=== PATIENT | male | born 1945 | race Caucasian/White ===

== ENCOUNTER 2018-12-13 19:23 | Inpatient (IN) | payer OTHER ==
[~2018-12-13] VITALS: Ht 185.4 cm; Wt 96.5 kg
[2018-12-13 19:25] VITALS: BP 129/98
[2018-12-13 19:41] LABS: HEMATOCRIT 41.8 % (42.0-52.0); HEMOGLOBIN 14.6 gm/dL (14.0-18.0); MCV 88.5 fL (80.0-100.0); PLATELET COUNT 173 thou/uL (150-400); RBC 4.72 mil/uL (4.50-6.00); RDW 14.1 % (10.5-14.5); WBC 7.2 thou/uL (4.0-11.0)
[2018-12-13 19:49] LABS: CALCIUM 8.5 mg/dL (8.5-10.1); CREATININE 1.5 mg/dL (0.7-1.3); POTASSIUM 3.2 mmol/L (3.5-5.1)
[2018-12-13 19:58] LABS: MAGNESIUM 1.5 mg/dL (1.8-2.4); TROPONIN-I 0.16 ng/mL (<0.06)
[2018-12-13 20:01] LABS: ANISOCYTOSIS 1+
[2018-12-13] MEDS ORDERED: LISINOPRIL20 MG PO (22:28)
[2018-12-13 22:29] VITALS: BP 127/81
[2018-12-13 22:37] VITALS: BP 127/81
[2018-12-14 05:02] LABS: CALCIUM 8.4 mg/dL (8.5-10.1); CREATININE 1.3 mg/dL (0.7-1.3); MAGNESIUM 1.6 mg/dL (1.8-2.4); POTASSIUM 3.6 mmol/L (3.5-5.1); TROPONIN-I 0.14 ng/mL (<0.06)
[2018-12-14 07:15] VITALS: BP 142/88
[2018-12-14 09:21] VITALS: BP 144/72
--- NOTE | 2018-12-14 09:24 | 2DMMODE ---
[facility] [place] [address] 2 D/M-MODE ECHOCARDIOGRAM Name: LBANCHE BIGGS Room #: 170-10 ADM IN M.R.#: [id number] ������������� Admission: 12/13/18 ������������� Attend Phys: Duncan Gongora Discharge: ��� ������������� ��� Date of : 49 Date of Service: 12/14/18 0923 �� Report #: [id number] �������� ��������������������������������������������[id number] THIS REPORT FOR: //name// APPROVED REPORT Study performed: 12/14/2018 08:11:13 EXAM: Comprehensive 2D, Doppler, and color-flow Echocardiogram Patient Location: ER Room #: 10 Status: routine BSA: 2.24 HR: 101 bpm BP: 140/80 mmHg Rhythm: Atrial Fibrillation Other Information Study Quality: Adequate Indications Atrial Fibrillation Hypertension/HDD 2D Dimensions RVDd: 33.54 mm IVSd: 12.86 (7-11mm) LVOT Diam: 21.50 (18-24mm) LVDd: 49.68 mm PWd: 11.87 (7-11mm) Ascending Ao: 29.61 (22-36mm) LVDs: 33.69 (25-40mm) Aortic Root: 32.29 mm IVC: 18.00 mm Volumes Left Atrial Volume (Systole) Single Plane 4CH: 59.23 mL Single Plane 2CH: 55.38 mL LA ESV Index: 28.00 mL/m2 Aortic Valve AoV Peak Rush.: 1.24 m/s AO Peak Gr.: 6.18 mmHg LVOT Max P.18 mmHg LVOT Max V: 0.89 m/s JAIRO Vmax: 2.60 cm2 Pulmonary Valve PV Peak Rush.: 1.08 m/s PV Peak Gr.: 4.69 mmHg [facility] [address] [place] [address] 2 D/M-MODE ECHOCARDIOGRAM Name: BLANCHE BIGGS Room #: 170-10 ADM IN ..#: [id number] ������������� Admission: 12/13/18 ������������� Attend Phys: Duncan Gongora Discharge: ��� ������������� ��� Date of : 49 Date of Service: 12/14/18 0923 �� Report #: [id number] �������� ��������������������������������������������[id number] Tricuspid Valve TR Peak Rush.: 2.54 m/s TR Peak Gr.: 25.78 mmHg PA Pressure: 31.00 mmHg Left Ventricle The left ventricle is normal size. There is normal LV segmental wall motion. Mild concentric left ventricular hypertrophy. The left ventricular systolic function is normal. The left ventricular ejection fraction is within the normal range. LVEF is 60-65%. This study is not technically sufficient to allow evaluation of the LV diastolic function due to atrial fibrillation. Right Ventricle The right ventricle is normal size. The right ventricular systolic function is normal. Atria The left atrium size is normal. The right atrium size is normal. Aortic Valve The aortic valve is normal in structure. No aortic regurgitation is present. There is no aortic valvular stenosis. Mitral Valve The mitral valve is normal in structure. Mild mitral regurgitation. No evidence of mitral valve stenosis. Tricuspid Valve The tricuspid valve is normal in structure. There is trace tricuspid regurgitation. Estimated PAP 30 mmHg. There is mild pulmonary hypertension. Pulmonic Valve The pulmonary valve is normal in structure. There is no pulmonic valvular regurgitation. Great Vessels The aortic root is normal in size. IVC is normal in size and collapses >50% with inspiration. Pericardium There is no pericardial effusion. <Conclusion> [facility] [address] [place] [address] 2 D/M-MODE ECHOCARDIOGRAM Name: BLANCHE BIGGS Room #: 170-10 [facility] IN M.R.#: [id number] ������������� Admission: 12/13/18 ������������� Attend Phys: Duncan Gongora Discharge: ��� ������������� ��� Date of : 49 Date of Service: 12/14/18922 �� Report #: [id number] �������� ��������������������������������������������[id number] The left ventricular systolic function is normal. There is normal LV segmental wall motion. LVEF is 60-65%. The aortic valve is normal in structure. No aortic regurgitation or stenosis The mitral valve is normal in structure. Mild mitral regurgitation. There is trace tricuspid regurgitation. Estimated pulmonary artery pressure of 30 mmHg. There is no pericardial effusion. ��������������������������������������������� <ELECTRONICALLY SIGNED> ���������������������������������������� By: Evans Steele MD, [facility] ��������������������������������������������� 12/14/18922 2 2 Evans Steele MD, FACC /INF
[2018-12-14 11:15] VITALS: BP 166/63
[2018-12-14] MEDS ORDERED: CARDIZEM CD240 MG PO (13:12)
[2018-12-14] MEDS ORDERED: XARELTO20 MG PO (13:13)
[2018-12-14 13:28] VITALS: BP 141/80
[2018-12-14 13:45] VITALS: BP 114/73
--- NOTE | 2018-12-14 13:48 | NUR ---
REPORT TAKEN FROM DUSTIN RN/ER. PT ARRIVED TO 2N ROOM 210. VSS. AFIB ON THE MONITOR RATES FROM 70-114. DILT GTT RUNNING AT 5MG/HR. NO PAIN/NO CHEST PAIN. PT RESTING IN BED WITH CALL LIGHT IN REACH. WILL CONTINUE TO MONITOR.
--- NOTE | 2018-12-14 17:56 | EKG ---
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: ABHAY : 1945 Requested By: Reggie Borja Order Number: [id number] MD: Evans Steele Measurements Intervals [place] Rate: 170 P: [place]: QRS: 0 QRSD: 83 T: 42 QT: 291 QTc: 490 Interpretive Statements Atrial fibrillation with rapid V-rate ST depression, probably rate related Baseline wander in lead(s) V6 Compared to ECG 03/18/1994 19:28:00 Atrial fibrillation has replaced sinus bradycardia Electronically Signed On 12-14-2018 17:55:46 CDT by Evans Steele [email or web address] ��������������������������������������������� <ELECTRONICALLY SIGNED> ���������������������������������������� By: Evans Steele MD, FAC ��������������������������������������������� 12/14/18 1755 30 30 Evans Steele MD, [facility] /EPI
--- NOTE | 2018-12-14 17:56 | EKG ---
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: shayy : 1945 Requested By: Reggie Borja Order Number: [id number] MD: Evans Steele Measurements Intervals [place] Rate: 85 P: [place]: QRS: 1 QRSD: 89 T: 10 QT: 355 QTc: 422 Interpretive Statements Atrial fibrillation Paired ventricular premature complexes Abnormal R-wave progression, early transition Borderline repolarization abnormality Compared to ECG 03/18/1994 19:28:00 Ventricular response has slowed ST and T wave abnormality is less pronounced Electronically Signed On 12-14-2018 17:56:36 CDT by Evans Steele [email or web address] ��������������������������������������������� <ELECTRONICALLY SIGNED> ���������������������������������������� By: Evans Steele MD, [facility] ��������������������������������������������� 12/14/18 1756 41 41 Evans Steele MD, [facility] /EPI
[2018-12-14 20:15] VITALS: BP 97/72
[2018-12-15 05:15] VITALS: BP 114/78
--- NOTE | 2018-12-15 07:37 | NUR ---
ASSESSMENTS CHARTED. PATIENT RESTED THROUGH OUT THE SHIFT. DENIED PAIN OR CHEST PRESSURE. PLAN OF CARE IS TO GO HOME TODAY WITH A CARDIAC EVENT RECORDER.
--- NOTE | 2018-12-15 08:50 | EKG ---
[address] [place] [address] ELECTROCARDIOGRAM REPORT Name: BLANCHE BIGGS Room #: 210-P ADM IN M.R.#: [id number] ������������������ Admission: 12/13/18 ������������������ Attend Phys: Duncan Hidalgo Discharge: ������������������ Date of : 49 Report #: [id number] ����������������������������������������������������������������� [id number] THIS REPORT FOR: //name// [facility] Test Date: 2018-12-15 Test Time: 06:44:51 Pat Name: BLANCHE BIGGS Department: Room: 210 P Gender: M Medical Csr: MIRANDA : 1945 Requested By: Evans Steele Order Number: [id number] MD: Vinh Juárez Measurements Intervals [place] Rate: 95 P: [place]: QRS: -14 QRSD: 96 T: 2 QT: 372 QTc: 468 Interpretive Statements Atrial fibrillation RSR' in V1 or V2, right VCD Borderline T abnormalities, inferior leads Compared to ECG 12/13/2018 20:42:10 RSR' in V1 or V2 now present T-wave abnormality now present Electronically Signed On 12-15-2018 8:49:57 CDT by Vinh Juárez [email or web address] ��������������������������������������������� <ELECTRONICALLY SIGNED> ���������������������������������������� By: Vinh Juárez MD ��������������������������������������������� 12/15/18 0849 0644 0644 Vinh Juárez MD /[facility]
[2018-12-15 09:00] VITALS: BP 104/78
[2018-12-15] MEDS ORDERED: ATENOLOL 50MG T50 M1 PO (09:31)
[2018-12-15 10:12] VITALS: BP 104/78
--- NOTE | 2018-12-15 10:22 | NUR ---
ASSESSMENT DOCUMENTED. VSS. AFIB ON THE MONITOR RATES CONTROLLED. DISCHARGE EDUCATION/PRESCRIPTIONS GIVEN. IV AND HEART MONITOR DC'D. NO PAIN. PT BEING SENT TO [address] FOR 2 WEEK EVENT RECORDER AT DISCHARGE. PT RESTING IN CHAIR WITH CALL LIGHT IN REACH. WILL CONTINUE TO MONITOR.
== END 2018-12-15 10:55 | disposition home or self-care (01) | DRG 309 ==
LOC: ER 19:23 → 2N 20:10 → EROBS 20:10 → 2N 12-14 13:29 → ENTRNSPT 12-15 10:42 → EDTRNSPTSTS 12-15 10:47 → 2N 12-15 10:55
PROVIDERS: Emergency Medicine; Nurse Practitioner Acute Care; ADMIT Hospitalist
DX: I48.91 Unspecified atrial fibrillation (principal); N17.9 Acute kidney failure, unspecified; E87.6 Hypokalemia; N18.3 Chronic kidney disease, stage 3 (moderate); Z87.891 Personal history of nicotine dependence; I12.9 Hypertensive chronic kidney disease with stage 1 through stage 4 chronic kidney disease, or unspecified chronic kidney disease; E83.42 Hypomagnesemia; Z82.49 Family history of ischemic heart disease and other diseases of the circulatory system
CPT/HCPCS: 10081

== ENCOUNTER 2019-01-10 13:03 | Inpatient (IN) | payer OTHER ==
[~2019-01-10] VITALS: Ht 188 cm; Wt 101.6 kg
[2019-01-10] VITALS (33 sets, daily range): BP systolic 63–135; BP diastolic 38–92
--- NOTE | ~2019-01-10 | HC ---
[facility] [place] [address] CONSULTATION Name: BLANCHE BIGGS Room #: 236-P ADM IN M.R.#: [id number] Admission: 01/10/19 ������������������ Attend Phys: Frandy Tate MD Discharge: ������������������ Date of : 49 Report #: [id number] THIS REPORT FOR: //name// CC: Frandy Turner REASON FOR CONSULTATION: Hypotension. HISTORY OF PRESENT ILLNESS: The patient is a 73-year-old gentleman with hypertension and recently identified atrial fibrillation. He was recently admitted for rate control and initiation of anticoagulant therapy. He has been maintained on Cardizem and atenolol as well as irbesartan for blood pressure. He was seen earlier today for JOSE R-guided cardioversion. Echocardiography demonstrated normal left ventricular systolic function and no left atrial appendage thrombus. Two synchronous joule shocks were applied with restorationist of sinus rhythm. He was discharged home. After getting home, he became lightheaded and near syncopal. Paramedics were summoned and he was found to be hypotensive and bradycardic with heart rates in the 40-50 range. There was mention of a junctional rhythm. He was seen in the Emergency Department and received intravenous fluids. He was intermittently somnolent and hypoxemic and ultimately intubated. Dopamine was initiated for hypotension. No history of coronary artery disease. No heart failure symptoms. No prior history of near-syncope or syncope. No bleeding problems with rivaroxaban. MEDICATIONS: Atenolol 50 mg daily, Cardizem CD 240 mg daily, rivaroxaban 20 mg daily, irbesartan 150 mg daily and flecainide. Following his cardioversion, his diltiazem was discontinued and flecainide 50 mg twice daily was started. PAST MEDICAL HISTORY: Past history and medical records have been reviewed and included a history of hypertension, seasonal allergies, knee surgery, back surgery, Achilles tendon repair. 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 FAMILY HISTORY: Unremarkable for premature coronary artery disease or atrial fibrillation. REVIEW OF SYSTEMS: All systems negative except as that noted above. PHYSICAL EXAMINATION: GENERAL: Reveals a gentleman who is sedated and ventilated. VITAL SIGNS: Blood pressure is 85/78, heart rate of 50 and regular, sinus rhythm. He is afebrile, 6 feet 4 inches tall and 215 pounds. HEENT: There are neither xanthelasma, subcutaneous xanthomata, oral mucosal or digital cyanosis or kyphoscoliosis present. CHEST: Clear to auscultation and percussion. CARDIOVASCULAR: Regular rate and rhythm with normal S1 and S2. [facility] [address] [place] [address] CONSULTATION Name: BLANCHE BIGGS Room #: 236-P [facility] IN M.R.#: [id number] Admission: 01/10/19 ������������������ Attend Phys: Frandy Tate MD Discharge: ������������������ Date of : 49 Report #: [id number] ABDOMEN: Soft and nontender. EXTREMITIES: Without cyanosis, clubbing or edema. Radial pulses are 2+. NEUROLOGICAL: He is alert with a nonfocal exam. LABORATORY DATA: Sodium 143, potassium 3.6, creatinine 2.1 and glucose 134. Troponin 0. White count 9.0, hemoglobin 12, hematocrit 37 and platelet count 214. TSH 4.5. RADIOLOGICAL DATA: Chest x-ray demonstrates cardiomegaly. EKG, sinus bradycardia. IMPRESSION: 1. Paroxysmal atrial fibrillation with JOSE R-guided cardioversion to sinus rhythm; probable sick sinus syndrome. 2. Hypotension, likely related to medications, coupled with intermittent junctional rhythm. 3. Dyslipidemia. 4. Possible angiotensin-converting enzyme inhibitor cough. RECOMMENDATIONS: 1. Hold blood pressure and rate controlling medications. Hemodynamic support with dopamine as medicines "washout." 2. Continued anticoagulant therapy following recent cardioversion. I have discussed these issues with the patient's family in detail. Thank you for asking me to participate in his care. ��������������������������������������������� ���������������������������������������� By: ��������������������������������������������� 1620 1019 Evans Steele MD, FACC /nt
[~2019-01-10 13:03] MED LIST changes: -CLONIDINE0.1 PO; -DILTIAZEM 24HR120 M2 PO
[2019-01-10 13:20] LABS: ABSOLUTE NEUTROPHILS 5.2 thou/uL (1.4-8.2); BASOPHILS 0.4 % (0.0-2.0); HEMATOCRIT 37.7 % (42.0-52.0); HEMOGLOBIN 12.8 gm/dL (14.0-18.0); LYMPHOCYTES 28.7 % (24.0-44.0); MCH 30.9 pg (26.0-34.0); MCHC 33.9 g/dL (28.0-37.0); MCV 91.2 fL (80.0-100.0); MONOCYTES 10.9 % (1.0-8.0); PLATELET COUNT 214 thou/uL (150-400); RBC 4.14 mil/uL (4.50-6.00); RDW 13.7 % (10.5-14.5)
[2019-01-10 13:27] LABS: ANION GAP 10 mmol/L (7-16); BUN 17 mg/dL (7-18); CALCIUM 8.4 mg/dL (8.5-10.1); CHLORIDE 106 mmol/L (98-107); CO2 27 mmol/L (21-32); CREATININE 2.1 mg/dL (0.7-1.3); GLUCOSE 134 mg/dL (74-106); POTASSIUM 3.6 mmol/L (3.5-5.1); SODIUM 143 mmol/L (136-145)
[2019-01-10 13:36] LABS: MAGNESIUM 1.7 mg/dL (1.8-2.4); TROPONIN-I <0.06 ng/mL (<0.06)
[2019-01-10] MEDS ORDERED: DILTIAZEM 24HR120 M2 PO (14:46)
[2019-01-10 15:02] LABS: BE(vivo) -5.8 mmol/L (-2 to +3); HCO3 19.7 mmol/L (22.0-26.0); PCO2 38.8 mmHg (35.0-45.0); PO2 67.8 mmHg (80.0-100.0); pH 7.323 (7.360-7.450); sO2 92.3 % (92.0-98.0)
--- NOTE | 2019-01-10 16:19 | NUR ---
CONSULTED FOR A CL ON THIS PT, HE IS INTUBATED AND SP CODE. NO FAMILY AVAILABLE, LINE IS EMERGENT. PER DR BONILLA ORDERS A CL--5FRTLPICC PLACED IN RT IJ PER HOSPITAL P&P, SEE INSERTION RECORD FOR DETAILS. LOT [id number] EXP 07/26/19
[2019-01-10 17:47] LABS: BE(vivo) -1.3 mmol/L (-2 to +3); HCO3 23.2 mmol/L (22.0-26.0); PCO2 38.2 mmHg (35.0-45.0); PO2 202.7 mmHg (80.0-100.0); pH 7.401 (7.360-7.450); sO2 99.4 % (92.0-98.0)
[2019-01-10 18:05] LABS: CALCIUM 7.8 mg/dL (8.5-10.1); POTASSIUM 3.8 mmol/L (3.5-5.1)
--- NOTE | 2019-01-10 19:27 | NUR ---
MD AT BEDSIDE -INTUBATION ADARSH ESTRELLA BROOKE, DR FRIAS, RT AT BEDSIDE 1507 VERSED 2MG IV ADMIN BY DALTON ESTRELLA 1508 VERSED GTT STARTED AT 1MG/HR (CONFIRMED WITH PHARMACY PRIOT TO STARTING) 1512 VERSED 2MG IV GIVEN PER MD VERBAL ORDER [id number] VERSED 2MG GIVEN IV
--- NOTE | 2019-01-10 20:05 | NUR ---
ASSUMED CARE OF PT. AT 1615 FROM ED. PT. ADMITTED TO 236 ON VENT ALREADY. VERSED AND DOPAMINE GTT ALREADY STARTED. RIGHT SUBCLAVIAN LINE IN PLACE FROM ED. FLUID AND ATROPINE GIVEN IN ED FOR HYPOTENSION. PT. REMAINS STABLE WITH DOPAMINE GTT IN PLACE. PT. REMAINS BRADYCARDIC. EMESIS X1, PARTIALLY DIGESTED FOOD APPEARANCE. INSTRUCTED TO DELAY CT SCAN TO ALLOW PT. TO REMAIN ON NG TUBE TO SUCTION BEFORE LAYING FLAT. UPDATED FAMILY, EDUCATED ON ICU VISITOR PROTOCOL, COMMUNICATES UNDERSTANDING. ASSESSMENTS AND VITAL SIGNS CHARTED. MEDICATION TITRATION CHARTED. MAGNESIUM GIVEN ORDERED. PLAN OF CARE IS TO CONTINUE TO CLOSELY MONITOR HEMODYNAMIC STABILITY. WILL CONTINUE TO MONITOR
[2019-01-11] VITALS (50 sets, daily range): BP systolic 89–137; BP diastolic 47–86
--- NOTE | 2019-01-11 03:31 | NUR ---
PT INTUBATED AND ON VENT, ADMITTED YESTERDAY AFTERNOON. ORIGINALLY ON VERSED GTT FOR VENT MANAGEMENT, BUT PROPOFOL GTT STARTED AND VERSED TITRATED DOWN AND IS NOW OFF. DOPAMINE GTT INFUSING. PT HAS BEEN BRADYCARDIC IN THE 50s MOST OF THE NIGHT. PT TAKEN DOWN FOR CT OF THE HEAD AND CHEST. HEAD CT NEGATIVE FOR BLEED. PT FEBRILE AT THE BEGINNING OF THE NIGHT. TEMP BROUGHT DOWN BY COOLING DOWN THE PT AND IS HAS NOW BEEN A LOW-GRADE FEVER. GIVEN TWO BAGS OF MAG AND WILL BE CHECKED AGAIN WITH AM LABS. WILL CONTINUE TO MONITOR CLOSELY.
[2019-01-11 04:14] LABS: CREATININE 1.5 mg/dL (0.7-1.3); MAGNESIUM 2.1 mg/dL (1.8-2.4); POTASSIUM 3.1 mmol/L (3.5-5.1)
--- NOTE | 2019-01-11 08:56 | EKG ---
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: CW : 1945 Requested By: Reggie Borja Order Number: [id number] MD: Evans Steele Measurements Intervals [place] Rate: 38 P: [place]: QRS: 11 QRSD: 102 T: 20 QT: 507 QTc: 403 Interpretive Statements Junctional rhythm RSR' in V1 or V2, right VCD Baseline wander in lead(s) I Compared to ECG 12/15/2018 06:44:51 Junctional rhythm now present Atrial fibrillation no longer present Electronically Signed On 01-11-2019 8:55:54 CDT by Evans Steele [email or web address] ��������������������������������������������� <ELECTRONICALLY SIGNED> ���������������������������������������� By: Evans Steele MD, [facility] ��������������������������������������������� 01/11/19 0855 1302 1302 Evans Steele MD, [facility] /EPI
[2019-01-11 09:03] LABS: BE(vivo) -0.6 mmol/L (-2 to +3); HCO3 23.2 mmol/L (22.0-26.0); PCO2 35.8 mmHg (35.0-45.0); PO2 63.1 mmHg (80.0-100.0); sO2 92.9 % (92.0-98.0)
--- NOTE | 2019-01-11 09:07 | EKG ---
[place] [address] [facility] [place] [address] ELECTROCARDIOGRAM REPORT Name: BLANCHE BIGGS Room #: 236-P ADM IN M.R.#: [id number] ������������������ Admission: 01/10/19 ������������������ Attend Phys: Frandy Tate MD Discharge: ������������������ Date of : 49 Report #: [id number] ����������������������������������������������������������������� [id number] THIS REPORT FOR: //name// [facility] Test Date: 2019-01-11 Test Time: 07:22:33 Pat Name: BLANCHE BIGGS Department: Room: 236 P Gender: M Mac Operator: MIRANDA : 1945 Requested By: Evans Steele Order Number: [id number] MD: Evans Steele Measurements Intervals [place] Rate: 53 P: -15 ID: [id number] QRS: 10 QRSD: 105 T: 6 QT: 494 QTc: 464 Interpretive Statements Sinus rhythm RSR' in V1 or V2, right VCD Compared to ECG 12/15/2018 06:44:51 Sinus rhythm has replaced junctional rhythm Electronically Signed On 01-11-2019 9:06:51 CDT by Evans Steele [email or web address] ��������������������������������������������� <ELECTRONICALLY SIGNED> ���������������������������������������� By: Evans Steele MD, [facility] ��������������������������������������������� 01/11/19905 1 1 Evans Steele MD, [facility] /EPI
--- NOTE | 2019-01-11 16:06 | NUR ---
Chart reviewed and case discussed with the care team. Pt is currently in ICU and is now extubated. Pt sleeping this afternoon. Director Biomedical Engineering visited with his spouse and dtr at bedside. They report the pt is very active and independent. He was recently here for afib and dc'd to outpt f/u. He was cardioverted yesterday am and went home only to return by EMS with loc. He is improving. No dc planning needs anticipated. CM role introduced. Will remain available should dc needs arise.
--- NOTE | 2019-01-11 17:59 | NUR ---
PT SEDATED ON PROPOFOL THIS AM. SEDATION VACATION GIVEN. FOLLOWING COMMANDS APPRIOPRIATELY. CPAP TRIAL DONE WITH POST ABG'S. ORDERS FROM DR. CASILLAS FOR RT TO EXTUBATE. PT EXTUBATED AT 0930 - TOLERATED WELL. CURRENTLY ON 2L NC. HOARSE VOICE BUT ABLE TO COUGH SECRETIONS UP. ORAL SUCTION AT BEDSIDE. TITRATED OFF DOPAMINE. VSS. PATIENT RESTING COMFORTABLY THROUGH OUT THE DAY. NO COMPLAINTS OF PAIN.
[2019-01-12] VITALS (19 sets, daily range): BP systolic 130–171; BP diastolic 61–92
--- NOTE | 2019-01-12 03:25 | NUR ---
PT EXTUBATED EARLY YESTERDAY. PT NOW A&O X4, ON 2-3L O2 NC, AND OFF PRESSORS SINCE YESTERDAY. BP IS STABLE AND HR RANGES MOSTLY FROM 50-60s. PT DENIES HAVING ANY PAIN. PT IS PROGRESSING TOWARDS GOALS. WILL CONTINUE TO MONITOR IN THE ICU.
[2019-01-12 08:31] LABS: CALCIUM 8.2 mg/dL (8.5-10.1); CREATININE 1.1 mg/dL (0.7-1.3); POTASSIUM 3.4 mmol/L (3.5-5.1)
--- NOTE | 2019-01-12 16:54 | NUR ---
PATIENT ALERT AND ORIENTED X4, NO COMPLAINTS OF PAIN. SINUS RHYTHM ON FRUIT TRIMMER. ON ROOM AIR. TOLERATING DIET. UP WITH STANDBY ASSISTANCE. PATIENT WALKED HALLWAY WITH PHYSICAL THERAPY. DISCHARGE INSTRUCTIONS DISCUSSED WITH PATIENT AND FAMILY. FOLLOW UP APPOINTMENT, CONTINUED MEDICATION, AND ACTIVITY LEVEL DISCUSSED. PATIENT AND FAMILY VERBALIZED UNDERSTANDING. NO SIGNS OF ACUTE DISTRESS NOTED AT THIS TIME. PATIENT DISCHARGED WITH DAUGHTER TO VEHICLE.
[2019-01-13] MEDS ORDERED: CLONIDINE0.1 PO (23:38)
== END 2019-01-12 16:30 | disposition home or self-care (01) | DRG 208 ==
LOC: ER 13:03 → EROBS 15:19 → ICU 15:19
PROVIDERS: Emergency Medicine; Internal Medicine; Pediatrics; ADMIT Internal Medicine
PROC: 0BH17EZ Insertion of Endotracheal Airway into Trachea, Via Natural or Artificial Opening (ICD-10-PCS; principal; 2019-01-10)
PROC: 5A2204Z Restoration of Cardiac Rhythm, Single (ICD-10-PCS; principal; 2019-01-10)
PROC: B24BZZ4 Ultrasonography of Heart with Aorta, Transesophageal (ICD-10-PCS; principal; 2019-01-10)
PROC: 5A1935Z Respiratory Ventilation, Less than 24 Consecutive Hours (ICD-10-PCS; principal; 2019-01-10)
DX: J96.01 Acute respiratory failure with hypoxia (principal); R57.0 Cardiogenic shock; N17.9 Acute kidney failure, unspecified; I48.0 Paroxysmal atrial fibrillation; I10 Essential (primary) hypertension; E78.5 Hyperlipidemia, unspecified; I95.9 Hypotension, unspecified; E66.9 Obesity, unspecified; D64.9 Anemia, unspecified; R00.1 Bradycardia, unspecified; Z87.891 Personal history of nicotine dependence; Z82.49 Family history of ischemic heart disease and other diseases of the circulatory system; Z79.01 Long term (current) use of anticoagulants; Z68.28 Body mass index [BMI] 28.0-28.9, adult; Z79.899 Other long term (current) drug therapy
CPT/HCPCS: 10078

== ENCOUNTER → 2019-01-10 | Outpatient (CLI) | payer OTHER ==
[~2019-01-10] VITALS: Ht 182.9 cm; Wt 97.5 kg
[~2019-01-10] MED LIST: ATENOLOL 50MG T50 M1 PO; CARDIZEM CD240 MG PO; CLONIDINE0.1 PO; DILTIAZEM 24HR120 M2 PO; FLECAINIDE ACET50 M2 PO; LISINOPRIL20 MG PO; XARELTO20 MG PO
[2019-01-10 07:42] VITALS: BP 138/88
--- NOTE | 2019-01-10 08:54 | TEE ---
[facility] [address] [place] [address] TRANSESOPHAGEAL ECHOCARDIOGRAM Name: BLANCHE BIGGS Room #: REG [facility]#: [id number] ������������� Admission: 01/10/19 ������������� Attend Phys: Evans Steele, Discharge: ��� ������������� ��� Date of : 49 Date of Service: 01/10/19 0854 �� Report #: [id number] �������� ��������������������������������������������[id number] THIS REPORT FOR: //name// APPROVED REPORT Study performed: 01/10/2019 07:54:28 EXAM: Comprehensive 2D, Doppler, and color-flow Echocardiogram Patient Location: Out-Patient Room #: 9 Status: routine BSA: 2.19 HR: 93 bpm BP: 138/88 mmHg Rhythm: Atrial Fibrillation Other Information Study Quality: Good Indications Atrial Fibrillation Echo Enhancing Agent Indication: Rule out Shunt Agent(s) / Amount(s) Used: Agitated Saline 7 cc Procedure After obtaining informed consent, patient underwent transesophageal echo in the [employer]. Type of Sedation : Conscious Sedation Sedation was administered by Marlon Juan RN. Sedation was achieved intravenously with: Versed (4 mg) Fentanyl (100 mcg) Transesophageal probe was inserted and advanced into esophagus without difficulty by Evans Steele MD. Echo enhancement indication: R/O Septal defect. Echo enhancement agent administered: Agitated Saline The JOSE R was performed without complications. Synchronized Cardioversion acheived with 100 Joules after 2 attempt(s). Rhythm following Synchronized Cardioversion: Normal Sinus Rhythm Throughout the procedure, the blood pressure, pulse oximetry, cardiac rhythm, and rate were monitored. The patient tolerated the procedure without adverse effects. Recovery [facility] [address] [place] [address] TRANSESOPHAGEAL ECHOCARDIOGRAM Name: BLANCHE BIGGS Room #: REG CL [facility].#: [id number] ������������� Admission: 01/10/19 ������������� Attend Phys: Evans Steele, Discharge: ��� ������������� ��� Date of : 49 Date of Service: 01/10/19 0854 �� Report #: [id number] �������� ��������������������������������������������[id number] from conscious sedation was uneventful and vital signs were stable. Left Ventricle The left ventricle is normal size. There is normal LV segmental wall motion. There is normal left ventricular wall thickness. The left ventricular systolic function is normal. The left ventricular ejection fraction is within the normal range. LVEF is 55-60%. Right Ventricle The right ventricle is normal size. The right ventricular systolic function is normal. Atria Left atrium is dilated. No thrombus is visualized in the left atrium or appendage. No shunting by contrast bubble injection Right atrium is at the upper limits of normal. Aortic Valve The aortic valve is normal in structure, trileaflet. No aortic regurgitation is present. There is no aortic valvular stenosis. Mitral Valve The mitral valve is normal in structure. Mild mitral regurgitation. No evidence of mitral valve stenosis. Tricuspid Valve The tricuspid valve is normal in structure. There is no tricuspid valve regurgitation noted. Pulmonic Valve The pulmonary valve is normal in structure. There is no pulmonic valvular regurgitation. Great Vessels The aortic root is normal in size. The ascending aorta is normal in size. IVC is normal in size and collapses >50% with inspiration. Pericardium There is no pericardial effusion. <Conclusion> The left ventricular systolic function is normal. There is normal LV segmental wall motion. LVEF 55-60%. [facility] [address] [place] [address] TRANSESOPHAGEAL ECHOCARDIOGRAM Name: BLANCHE BIGGS Room #: REG [facility]#: [id number] ������������� Admission: 01/10/19 ������������� Attend Phys: Evans Steele, Discharge: ��� ������������� ��� Date of : 49 Date of Service: 01/10/19 0854 �� Report #: [id number] �������� ��������������������������������������������[id number] No thrombus is visualized in the left atrium or appendage. No shunting by contrast bubble injection The aortic valve is normal in structure, trileaflet. No aortic regurgitation or stenosis. The mitral valve is normal in structure. Mild mitral regurgitation. There is no pericardial effusion. Successful cardioversion of atrial fibrillation to sinus following 2 100J synchronous shocks ��������������������������������������������� <ELECTRONICALLY SIGNED> ���������������������������������������� By: Evans Steele MD, [facility] ��������������������������������������������� 01/10/19 0854 0854 0854 Evans Steele MD, FACC /INF
[2019-01-10 10:00] VITALS: BP 138/88
== END ==
LOC: CATH 07:11
DX: I48.91 Unspecified atrial fibrillation (principal); Z98.890 Other specified postprocedural states; Z79.899 Other long term (current) drug therapy

== ENCOUNTER 2019-01-13 21:31 | Emergency (ER) | payer OTHER ==
[~2019-01-13] VITALS: Ht 188 cm; Wt 97.5 kg
[~2019-01-13 21:31] MED LIST changes: +DILTIAZEM 24HR120 M2 PO
[2019-01-13] MEDS ORDERED: CLONIDINE0.1 PO (23:38)
[2019-01-13 23:44] VITALS: BP 168/85
--- NOTE | 2019-01-14 10:37 | EKG ---
[address] [address] [place] [address] ELECTROCARDIOGRAM REPORT Name: BLANCHE BIGGS Room #: DEP [facility]#: [id number] ������������������ Admission: 01/13/19 ������������������ Attend Phys: Discharge: 01/13/19 ������������������ Date of : 49 Report #: [id number] ����������������������������������������������������������������� [id number] THIS REPORT FOR: //name// 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 Technician: kurt : 1945 Requested By: Daniel Arroyo Order Number: [id number] MD: Vinh Juárez Measurements Intervals Taberg Rate: 74 P: 49 IN: 145 QRS: -8 QRSD: 97 T: 2 QT: 428 QTc: 475 Interpretive Statements Sinus rhythm Multiple premature complexes, vent & supraven Nonspecific ST segment abnormality Compared to ECG 01/11/2019 07:22:33 No significant changes Electronically Signed On 01-14-2019 10:37:19 CDT by Vinh Juárez [email or web address] ��������������������������������������������� <ELECTRONICALLY SIGNED> ���������������������������������������� By: Vinh Juárez MD ��������������������������������������������� 01/14/19 1037 [id number] [id number] MD ROMAN Garcia
== END 2019-01-13 23:48 | disposition home or self-care (01) ==
LOC: ER 21:31
DX: I10 Essential (primary) hypertension (principal); M17.12 Unilateral primary osteoarthritis, left knee; Z87.891 Personal history of nicotine dependence

== ENCOUNTER → 2019-01-21 | Outpatient (CLI) | payer OTHER ==
[~2019-01-21] MED LIST changes: +CLONIDINE0.1 PO
--- NOTE | ~2019-01-21 | SLE ---
[facility] [place] [address] POLYSOMNOGRAPHY STUDY Name: BLANCHE BIGGS Room #: REG [facility]#: [id number] Admission: 01/21/19 ������������������ Attend Phys: Darwin Stark MD Discharge: ������������������ Date of : 49 Report #: [id number] THIS REPORT FOR: //name// CC: Darwin Steele MD [facility] unknown DATE OF SERVICE: 01/21/2019 ATTENDING PHYSICIAN: Evans Steele MD. The patient is a 73-year-old who weighs 218 pounds. The patient's BMI is 27. The patient's Avoca score was 1. The patient underwent split night study at [facility]. The patient has a history of atrial fibrillation. During the night study, the patient spent 446 minutes in bed and slept for 284 minutes with a low sleep efficiency of 63%. Sleep latency was 9.2 minutes with a REM latency of 149 minutes. Overall, sleep architecture showed increased stage 1 and stage 2 sleep, normal N3 sleep and reduced REM sleep, which was only 3% of total sleep time. During the initial diagnostic portion of the study, the patient slept for 151 minutes. During that time, the patient had 108 apneas. There were 62 obstructive, 2 mixed and 44 central apneas. The patient also had 44 hypopneas. The patient's apnea hypopnea index was 60 per hour with a REM index of 40 per hour and a supine index of 67 per hour. EKG monitoring revealed an average heart rate of 75 beats per minute. It was atrial fibrillation throughout the study with a maximum heart rate of 100 beats per minute. PLMs were not seen during the diagnostic portion. Nocturnal oximetry study during the diagnostic portion revealed an average oxygen saturation of 95% with a lowest of 87%. Only 0.8 minutes were spent in oxygen saturation less than 89%. The patient met the criteria for CPAP initiation. It was started at 5 cm of water and the patient did not titrate the CPAP as there were persistent central apneas. At this pressure, there were 47 central apneas, no obstructive apneas, no mixed apneas and 7 hypopneas resulting in an apnea-hypopnea index of 28.9 per hour. Saturation stayed above 94%. Optimum positive pressure therapy pressure was not achieved. The patient exhibited Chadwick-Agee breathing pattern during the night study. IMPRESSION: [facility] [address] [place] [address] POLYSOMNOGRAPHY STUDY Name: BLANCHE BIGGS Room #: REG [facility]#: [id number] Admission: 01/21/19 ������������������ Attend Phys: Darwin Stark MD Discharge: ������������������ Date of : 49 Report #: [id number] 1. Severe sleep apnea-hypopnea syndrome with an apnea hypopnea index of 60 per hour. 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 2. Chadwick-Agee breathing pattern seen during the night study. This pattern can be seen in patients with cardiomyopathy and also neurological disorders. Clinical correlation is advised. 3. Abnormal EKG consistent with atrial fibrillation. 4. No clinically significant periodic limb movements. 5. Reduced sleep efficiency resulting from sleep maintenance insomnia. 6. No clinically significant nocturnal hypoxia. RECOMMENDATIONS: 1. Optimum CPAP pressure was not achieved due to persistent central apneas. I would recommend the patient return to the sleep lab for a BiPAP titration study. The patient may need backup rate. 2. Once optimum pressure is achieved, then follow up in 4-6 weeks to assess compliance and to document clinical improvement. 3. Further evaluation of Chadwick-Agee breathing pattern clinically. 4. Follow up with Cardiology regarding atrial fibrillation. 5. The patient should also be further evaluated for insomnia if it persists despite treatment with BiPAP. 6. Avoid CARDIAC EXERCISE SPECIALIST depressants. 7. Weight loss is strongly advised. 8. Cautioned regarding driving until symptoms of sleep apnea resolve with the above recommendations. ��������������������������������������������� ���������������������������������������� By: ��������������������������������������������� 1510 1536 Darwin Stark MD /nt
== END ==
LOC: SLEEPLAB 16:19
DX: G47.33 Obstructive sleep apnea (adult) (pediatric) (principal)

== ENCOUNTER → 2019-02-15 | Outpatient (CLI) | payer OTHER ==
--- NOTE | 2019-02-18 19:22 | SLE ---
[facility] [place] [address] POLYSOMNOGRAPHY STUDY Name: Cy BIGGS Room #: REG [facility]#: [id number] Admission: 02/15/19 ������������������ Attend Phys: Darwin Stark MD Discharge: ������������������ Date of : 49 Report #: [id number] THIS REPORT FOR: //name// CC: Darwin Stark FAM unknown Rolf Jean MD DATE OF SERVICE: 02/15/2019 ATTENDING PHYSICIAN: Dr. Rolf Jean. The patient is a 73-year-old male who was diagnosed with severe complex sleep apnea-hypopnea syndrome with an AHI of 60 per hour by a sleep study done on 01/21/2019. The patient also has chronic atrial fibrillation. The patient also had Chadwick-Agee breathing pattern seen during the last night study. The patient could not achieve an optimum CPAP pressure. As a result, he was recommended to have a BiPAP titration study and possibility of a backup rate. His ejection fraction is normal. During the night of the study, the patient spent 359 minutes in bed and slept for 220 minutes with a low sleep efficiency of 61%. Sleep latency was 30 minutes with a REM latency of 313 minutes. Overall sleep architecture showed increased stage 1 sleep, reduced stage 2 sleep, absent N3 sleep and significantly reduced REM sleep, which was 3% of total sleep time. EKG monitoring revealed an average heart rate of 72 beats per minute with a maximum of 92 beats per minute. There was chronic atrial fibrillation throughout. No sustained arrhythmias observed. No clinically significant PLMS seen. The PLM index was only 2.5 per hour. The patient was started on BiPAP at a pressure of 10/6. The pressure was gradually increased to eliminate apneas, especially central apneas. A backup rate of 12 beats per minute was added. At a final BiPAP pressure of 16/9 with a backup rate of 12, the patient slept for 32 minutes including 7 minutes of REM sleep. The patient had no supine sleep. The patient's AHI was reduced to 3.7 per hour and oxygen saturation remained above 90%. IMPRESSION: 1. Severe complex sleep apnea diagnosed by recent sleep study. 2. Reduced sleep efficiency resulting from sleep maintenance insomnia. 3. Atrial fibrillation with controlled rate. This is chronic as it was seen on previous study as well. 4. No clinically significant periodic limb movements of sleep. RECOMMENDATIONS: [facility] [address] [place] [address] POLYSOMNOGRAPHY STUDY Name: Cy BIGGS Room #: REG [facility]#: [id number] Admission: 02/15/19 ������������������ Attend Phys: Darwin Stark MD Discharge: ������������������ Date of : 49 Report #: [id number] 1. BiPAP at 16/9 with a backup rate of 12 beats per minute completely eliminated the patient's sleep apnea and should be used on a nightly basis. 2. Follow up in 4-6 weeks to assess compliance with BiPAP and to document clinical improvement. 3. Weight loss is advised to the ideal body weight. 4. Avoid TRIMMER HAND depressants. 5. Cautioned regarding driving until symptoms of sleep apnea have resolved with the use of BiPAP. ��������������������������������������������� <ELECTRONICALLY SIGNED> ���������������������������������������� By: Darwin Stark MD ��������������������������������������������� 02/18/19 1922 1457 1515 Darwin Stark MD /nt
== END ==
LOC: SLEEPLAB 15:30
DX: G47.31 Primary central sleep apnea (principal); R55 Syncope and collapse; I48.91 Unspecified atrial fibrillation; G47.00 Insomnia, unspecified; I10 Essential (primary) hypertension; E78.5 Hyperlipidemia, unspecified; Z87.891 Personal history of nicotine dependence

== ENCOUNTER → 2021-07-07 | Outpatient (CLI) | payer OTHER ==
--- NOTE | 2021-07-13 15:11 | SLE ---
[facility] [place] [address] POLYSOMNOGRAPHY STUDY Name: Cy BIGGS Room #: REG [facility]#: [id number] Admission: 07/07/21 Attend Phys: Darwin Stark MD Discharge: Date of : 49 Report #: [id number] THIS REPORT FOR: cc: FAM - Family physician unknown FAM - Family physician unknown Darwin Stark MD ~ cc: Cuhck Crooks MD DATE OF SERVICE: 07/07/2021 SLEEP STUDY ATTENDING PHYSICIAN: Dr. Chuck Crooks. The patient is a 75-year-old who weighs 200 pounds with a BMI of 25.7. The patient has history of severe complex sleep apnea. He has been on auto BiPAP at a maximum IPAP of 20 and a minimum EPAP of 5 and a maximum pressure support of 8. The patient had a recent download data which showed an AHI of 19 events per hour. The patient does use a backup rate of 12. Another titration study was requested. This was performed at [facility]. During the night of study, the patient spent 420 minutes in bed and slept for 357 minutes with a sleep efficiency of 85%. Sleep latency was 3.7 minutes with a REM latency of 83 minutes. Sleep architecture showed normal stage 1 sleep, increased stage 2 sleep, normal slow wave and slightly reduced REM sleep, which was 15% of total sleep time. EKG monitoring revealed an average heart rate of 53 beats per minute. The patient has history of chronic atrial fibrillation. No sustained arrhythmias observed. No significant PLM seen. The patient was started on BiPAP at a pressure of 16/9. The patient had a backup rate of 12. The patient was titrated up to 18/11. At that pressure, the patient had a backup rate of 14. The patient slept for 225 minutes. The patient's AHI was reduced to 6.9 per hour. The patient did have 26 hypopneas, but no central or obstructive or mixed apneas. The patient's oxygen saturation remained above 89%. I would recommend the patient should be placed on auto BiPAP. At a maximum IPAP pressure of 22, minimum EPAP pressure of 12 and a pressure support of 6 with a backup rate of 14. IMPRESSION: 1. Severe complex sleep apnea diagnosed previously. 2. No clinically significant periodic limb movements. 3. Chronic Atrial Fibrillation. [facility] [address] [place] [address] POLYSOMNOGRAPHY STUDY Name: Cy BIGGS Room #: REG [facility]#: [id number] Admission: 07/07/21 Attend Phys: Darwin Stark MD Discharge: Date of : 49 Report #: [id number] RECOMMENDATIONS: 1. The patient should be placed on an auto BiPAP with a backup rate in the ST mode. Maximum IPAP of 22, minimum EPAP of 12 with a maximum pressure support of 6 and a backup rate of 14. 2. The patient should have a download data in next 30 days to make sure AHI remains less than 5 per hour. 3. The patient has chronic atrial fibrillation, which is to be followed by Cardiology. 4. Avoid ASSOCIATE CREATIVE DIRECTOR depressants. 5. Cautioned regarding driving when sleepy or sleep deprived. <ELECTRONICALLY SIGNED> By: Darwin Stark MD 07/13/21 1511 0833 0848 Darwin Stark MD /nt
== END ==
LOC: SLEEPLAB 13:08
PROVIDERS: ATTEND Internal Medicine Critical Care Medicine
DX: G47.33 Obstructive sleep apnea (adult) (pediatric) (principal); G47.31 Primary central sleep apnea; I48.91 Unspecified atrial fibrillation; R55 Syncope and collapse; Z20.822 Contact with and (suspected) exposure to COVID-19